=== PATIENT | female | born 2000 | race Caucasian/White ===

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

== ENCOUNTER 2020-08-01 18:28 | Emergency (ER) | payer BC, OTHER ==
[~2020-08-01] VITALS: Ht 157.5 cm; Wt 59.0 kg
[~2020-08-01 18:28] MED LIST changes: +METR-520 PO; -METR250T2 PO
[2020-08-01 18:44] VITALS: BP 114/75
--- NOTE | 2020-08-01 18:46 | NUR ---
Dr. Jaimes at pt bedside for further evaluation.
--- NOTE | 2020-08-01 18:49 | NUR ---
20 Y/O FEMALE C/O LEFT HAND AND WRIST PAIN STATES DESCRIBES 10/10 PAIN WITH MOVEMENT WITH SWELLING S/P FALL TODAY. PT STATES SINCE STROKE SHE HAS HAD LEFT SIDED DEFICITS. PT DENIES N/V, DENIES FEVER/CHILLS. PMH: STROKE (2019), RENAL FAILURE, HTN, SEIZURES NKA
--- NOTE | 2020-08-01 18:52 | NUR ---
batch room technician at pt bedside.
--- NOTE | 2020-08-01 19:15 | NUR ---
Gave report to VIRIDIANA Dickens. Transfer of care at this time.
--- NOTE | 2020-08-01 19:15 | NUR ---
REPORT RECEIVED FROM VIRIDIANA GREENE FOR CONTINUITY OF CARE.
--- NOTE | 2020-08-01 19:20 | NUR ---
XRAY AT BEDSIDE.
--- NOTE | 2020-08-01 19:52 | NUR ---
ERMD AT BEDSIDE.
--- NOTE | 2020-08-01 19:58 | NUR ---
DAI RODAS AT BEDSIDE ASSISTING WITH SPLINTING.
--- NOTE | 2020-08-01 19:58 | NUR ---
ULNAR GUTTER SPLINT PLACED ON PT L ARM AND WRAPPED WITH NICHO WRAP. +CSM
[2020-08-01] MEDS ORDERED: ACET-8386 PO (20:10)
--- NOTE | 2020-08-01 20:24 | NUR ---
LEFT HAND/WRIST SPLINT ASSESSED. CMS INTACT. PATIENT DENIES NUMBNESS OR TINGLING. CAP REFILL < 3 SECONDS. SKIN IS WARM.
--- NOTE | 2020-08-01 20:25 | NUR ---
Patient discharged with v/s stable. Written and verbal after care instructions given and explained. Patient alert, oriented and verbalized understanding of instructions. Ambulatory with steady gait. All questions addressed prior to discharge. ID band removed. Patient advised to follow up with PMD. Rx of HYDROCODONE/ACETAMINOPHEN given. Patient educated on indication of medication including possible reaction and side effects. Opportunity to ask questions provided and answered.
== END 2020-08-01 20:25 | disposition home or self-care (01) ==
LOC: MED 18:28
DX: S62.347A Nondisplaced fracture of base of fifth metacarpal bone, left hand, initial encounter for closed fracture (principal); Z90.49 Acquired absence of other specified parts of digestive tract; Z79.899 Other long term (current) drug therapy; W19.XXXA Unspecified fall, initial encounter; Y93.89 Activity, other specified; Y92.89 Other specified places as the place of occurrence of the external cause; Y99.8 Other external cause status
CPT/HCPCS: 73110; 73130; 99284